=== PATIENT | female | born 1955 | race Caucasian/White ===

== ENCOUNTER 2017-12-20 13:40 | Inpatient (IN) | payer MEDICARE, MEDICAID, OTHER ==
[2017-12-20 22:37] LABS: ADD MAN DIFF? NO
[2017-12-20 22:45] LABS: WHITE BLOOD COUNT 10.7 10^3/ul (4.8-10.8)
[2017-12-20 22:45] LABS: BASOPHILS % 0.4 % (0.0-2.0); EOSINOPHILS % 0.3 % (0.0-7.0); HEMOGLOBIN 11.5 g/dl (12.0-16.0); LYMPHOCYTES % 8.9 % (15.0-51.0); MEAN CORPUSCULAR HEMOGLOBIN 31.3 pg (29.0-33.0); MEAN CORPUSCULAR HGB CONC 32.9 g/dl (32.0-37.0); MEAN CORPUSCULAR VOLUME 95.4 fl (82.0-101.0); MEAN PLATELET VOLUME 11.6 fl (7.4-10.4); MONOCYTE # 0.7 10^3/ul (0.3-0.9); MONOCYTES % 6.4 % (0.0-11.0); NEUTROPHIL # 8.9 10^3/ul (1.6-7.5); NEUTROPHILS % 83.6 % (39.0-77.0); PLATELET COUNT 207 10^3/UL (140-415); RED BLOOD COUNT 3.67 10^6/ul (4.20-5.40); RED CELL DISTRIBUTION WIDTH 16.4 % (11.5-14.5)
[2017-12-20 23:02] LABS: INR 1.12; PROTIME 14.6 Sec (11.9-14.9); PT RATIO 1.1
[2017-12-20 23:03] LABS: PARTIAL THROMBOPLASTIN TIME 29.2 Sec (25.0-35.0)
[2017-12-20 23:03] LABS: LACTIC ACID 0.9 mmol/L (0.5-2.0)
[2017-12-20 23:06] LABS: ALANINE AMINOTRANSFERASE 43 IU/L (13-69); ALBUMIN 3.8 g/dl (3.3-4.9); ALBUMIN/GLOBULIN RATIO 1.02; ALKALINE PHOSPHATASE 501 IU/L (42-121); ANION GAP 15 (8-16); ASPARTATE AMINO TRANSFERASE 46 IU/L (15-46); BILIRUBIN,INDIRECT 0.4 mg/dl (0-1.1); BILIRUBIN,TOTAL 0.4 mg/dl (0.2-1.3); BLOOD UREA NITROGEN 33 mg/dl (7-20); CALCIUM 9.5 mg/dl (8.4-10.2); CARBON DIOXIDE 26 mmol/L (21-31); CHLORIDE 104 mmol/L (97-110); CREATININE 0.53 mg/dl (0.44-1.00); GLUCOSE 110 mg/dl (70-220); POTASSIUM 4.1 mmol/L (3.5-5.1); SODIUM 141 mmol/L (135-144); TOTAL PROTEIN 7.5 g/dl (6.1-8.1)
[2017-12-20] MEDS: CEFEPIME 2GM/50 ML (PMX) 50 ML IVPB (23:08)
[2017-12-20] MEDS: SODIUM CHLORIDE 0.9% 1L BAG IV* (23:11)
[2017-12-20 23:16] LABS: TROPONIN-I 0.025 ng/ml (0.00-0.12)
[2017-12-20 23:21] LABS: ADD UMIC YES; UR AMORPHOUS CRYSTAL FEW /HPF (NONE SEEN); UR ASCORBIC ACID 40 mg/dL (NEGATIVE); UR BACTERIA FEW /HPF (NONE SEEN); UR BILIRUBIN (Dip) NEGATIVE (NEGATIVE); UR BLOOD (Dip) NEGATIVE (NEGATIVE); UR CLARITY CLEAR (CLEAR); UR COLOR YELLOW (YELLOW); UR GLUCOSE (Dip) NEGATIVE (NEGATIVE); UR KETONES (Dip) NEGATIVE (NEGATIVE); UR LEUKOCYTE ESTERASE (Dip) NEGATIVE Leu/ul (NEGATIVE); UR NITRITE (Dip) NEGATIVE (NEGATIVE); UR RBC 2 /HPF (0-5); UR SPECIFIC GRAVITY (Dip) 1.021 (1.003-1.030); UR SQUAMOUS EPITHELIAL CELL FEW /HPF (FEW); UR TOTAL PROTEIN (Dip) 2+ mg/dl (NEGATIVE); UR UROBILINOGEN (Dip) 2+ mg/dL (NEGATIVE); UR WBC 1 /HPF (0-5)
[2017-12-20] MEDS: VANCOMYCIN 1 GM (PMX) 250 ML IVPB (23:45)
[2017-12-21] MEDS ORDERED: ONDANSETRON 4 MG INJ IV (01:30)
[2017-12-21] MEDS ORDERED: ACETAMINOPHEN 325 MG TAB PO (01:30)
[2017-12-21] MEDS ORDERED: morphine 2 MG INJ IV (03:30)
[2017-12-21 04:15] LABS: LACTIC ACID 0.7 mmol/L (0.5-2.0)
[2017-12-21] MEDS: CEFEPIME 1GM/50 ML (PMX) 50 ML IVPB (08:53)
[2017-12-21] MEDS: LOSARTAN 50 MG TAB PO (08:53)
[2017-12-21] MEDS ORDERED: VANCOMYCIN IV PER PHARMACY XX (09:00)
[2017-12-21] MEDS: VANCOMYCIN 500MG/NS (PMX) 100 ML IVPB (12:43)
[2017-12-21] MEDS: BALSAM PERU/CASTOR OIL 60 GM TUBE TOP (14:23)
[2017-12-21] MEDS: NYSTATIN 30 GM POWDER BTL TOP (15:00)
[2017-12-23] MEDS ORDERED: INFLUENZA VIRUS VACCINE 0.5 ML (DISPENSING) IM* (09:00)
== END 2017-12-21 17:15 | disposition short-term general hospital (02) | DRG 315 ==
LOC: MS2 12-21 01:30 → E/R 13:40 → MS2 12-21 02:44
DX: T82.7XXA Infection and inflammatory reaction due to other cardiac and vascular devices, implants and grafts, initial encounter (principal); L03.313 Cellulitis of chest wall; G20 Parkinson's disease; I10 Essential (primary) hypertension; E86.0 Dehydration; F79 Unspecified intellectual disabilities; D64.9 Anemia, unspecified; Z96.642 Presence of left artificial hip joint; Y83.8 Other surgical procedures as the cause of abnormal reaction of the patient, or of later complication, without mention of misadventure at the time of the procedure; Y92.019 Unspecified place in single-family (private) house as the place of occurrence of the external cause; Z95.0 Presence of cardiac pacemaker
CPT/HCPCS: 36415; 71250; 80053; 81001; 83605; 84484; 85025; 85610; 85730; 87040; 87081; 87086; 93005; 96365; 96366; 96375; 99285-25